=== PATIENT | male | born 1965 | race African-American/Black ===

== ENCOUNTER 2019-11-14 03:51 | Emergency (ER) | payer MEDICARE, SELFPAY ==
--- NOTE | 2019-11-14 03:41 | ED.GENADULT ---
HPI - General Adult General Chief complaint: Wound/Laceration Stated complaint: decub ulcer Source: patient and EMS Mode of arrival: EMS Limitations: no limitations History of Present Illness HPI narrative: Patient is a 54-year-old male with a history of diabetes and hypertension who presents via EMS for evaluation of irritation to his bottom. EMS was called for generalized sick visit, when they arrived, the patient is reporting some irritation in his bottom with concern for a wound. Patient denying any other symptoms such as fever, chills, chest pain, weakness. He is quite a large gentleman, but he is ambulatory at home. He has family members that check on him that help to provide him meals, and do his activities of daily living. He states he is safe at home. Patient denies any abdominal pain, diarrhea or constipation. Glucose 144 per EMS. All other vital signs stable. Related Data Allergies Allergy/AdvReac Type Severity Reaction Status Date / Time No Known Allergies Allergy Verified 11/14/19 04:05 Review of Systems Review of Systems: Narrative: CONSTITUTIONAL: Denies fever CARDIOVASCULAR: Denies chest pain RESPIRATORY: Denies cough or dyspnea. GASTROINTESTINAL: Denies abdominal pain, vomiting SKIN: Denies rash MUSCULOSKELETAL: Denies back pain NEUROLOGIC: Denies headache [facility] Past Medical History Medical History (Updated 11/14/19 @ 04:10 by Anjana Goodman MD) Diabetes Hypertension Social History Social History (Updated 11/14/19 @ 04:04 by Anjana Goodman MD) Smoking status: Current every day smoker Tobacco type: cigarettes Alcohol intake: never Substance use: never Gender identity (if verbalized by the patient): Male Exam Narrative: Exam Narrative: GENERAL: Awake, alert, conversant HEAD: Normocephalic, atraumatic. EYES: PERRLA and EOMI. ENT: Nares clear, no rhinorrhea or epistaxis. Mucous membranes moist. NECK: Supple. CHEST: No respiratory distress, breathing even and non labored HEART: Regular rate, sinus rhythm ABDOMEN: Obese, non distended, non tender Rectal: Patient with chafing areas, mild excoriation, there is stool present in the rectum. No melena. Guaic negative. No ulceration. No abscess. No areas of tenderness. No excoriated areas or ulceration of the thigh or scrotal area. EXTREMITIES: Normal range of motion. No edema. SKIN: Warm, dry, chronic venous stasis changes bilateral lower extremities. Dry skin of both feet. NEURO:No focal deficits. Alert and oriented x3 Course Vital Signs Vital signs: Vital Signs Temperature 37.2 C 11/14/19 03:52 Pulse Rate 78 11/14/19 03:52 Respiratory Rate 18 11/14/19 03:52 Blood Pressure 173/91 H 11/14/19 03:52 Pulse Oximetry 96 11/14/19 03:52 Temperature 37.2 C 11/14/19 03:52 Pulse Rate 78 11/14/19 03:52 Respiratory Rate 18 11/14/19 03:52 Blood Pressure 173/91 H 11/14/19 03:52 Pulse Oximetry 96 11/14/19 03:52 Medical Decision Making MDM Narrative Medical decision making narrative: Patient presenting for evaluation of wound, irritation on the patient's bottom. At the time of assessment the patient is well-appearing without any complaints of infectious etiology. No fever, weakness, abdominal pain. On physical exam, myself as well as 3 other nurses checked the patient's rectal area, there is some areas of chafing with mild excoriation, there is no ulceration, tunneling abscess, edema. There is a lot of stool present outside of the rectum and I think this is likely causing some excoriation and irritation. We wiped the patient, were able to look between the thighs and near the perineum, scrotum without evidence of other lesions. No other rashes or ulcerations on the legs. Do not see any concerning findings for scrotal abscess, Cinthya's gangrene, I do not even see a decubitus ulcer. I think that patient has had stool building up on his rectum because he has issues with mobility and wiping, and then the st
[2019-11-14 03:52] VITALS: BP 173/91; PULSE 78; RESP 18; TEMP 37.2; O2SAT 96
--- NOTE | 2019-11-14 04:03 | PC.NURSE ---
carisa care provided upon arrival.
[2019-11-14] MEDS: COD LIVER OIL/ZINC OXIDE OINT 30 GM 1 APPLIC TOPICAL (04:38)
== END 2019-11-14 04:39 | disposition home or self-care (01) ==
PROVIDERS: Emergency Provider Emergency Medicine; PCP Family Medicine
DX: S30.810A Abrasion of lower back and pelvis, initial encounter (principal); X58.XXXA Exposure to other specified factors, initial encounter; E11.9 Type 2 diabetes mellitus without complications; I10 Essential (primary) hypertension
CPT/HCPCS: 99283; A9270